=== PATIENT | male | born 1985 | race African-American/Black ===

== ENCOUNTER 2016-08-07 04:40 | Emergency (ER) | payer OTHER ==
[~2016-08-07] VITALS: Ht 198.1 cm; Wt 145.0 kg
[~2016-08-07 04:40] MED LIST: Z.0.NO CURRENT MEDS
[2016-08-07 04:44] VITALS: BP 118/62; PULSE 83; RESP 18; TEMP 98.2; O2SAT 96
--- NOTE | 2016-08-07 05:02 | PD ---
HPI Chief Complaint: Pain: Acute or Chronic Time Seen by Provider: 04:58 Travel History International Travel<30 days: No Contact w/Intl Traveler<30days: No Traveled to known affect area: No History of Present Illness HPI Patient comes in complaining of intermittent shooting pain throughout his bilateral feet over the past 3 days. Patient denies any trauma or known injury. Patient states he has been doing a little more work and walking around more for several few days. Pain radiates proximally. Patient denies doing anything for this. Patient states sometimes pain gets worse at night. PFS Past Medical History Medical History: Denies Significant Hx Diminished Hearing: No Social History Alcohol Use: No Tobacco Use: Yes (1 PK EVERY 3 DAYS) Substance Use: Yes (MARIJUANA) Allergies-Medications (Allergen,Severity, Reaction): Coded Allergies: No Known Allergies (Verified , 08/07/16) Reported Meds & Prescriptions Reported Meds & Active Scripts Active Reported No Current Meds (Miscellaneous Medication) Misc Review of Systems Except as stated in HPI: all other systems reviewed are Neg Physical Exam Narrative GENERAL: Well-developed, overly nourished, in no acute distress, and non-ill appearing. SKIN: Warm and dry. Dry flaky skin noted bilateral feet. There is no signs of tinea infection, abscess, cellulitis, or Cait's. There is no crepitus. HEAD: Atraumatic. Normocephalic. EYES: Pupils equal and round. EOMI. No scleral icterus. No injection or drainage. ENT: No nasal bleeding or discharge. Mucous membranes pink and moist. NECK: Trachea midline. Supple. No nuclear rigidity. CARDIOVASCULAR: Dorsal pulses 2+, tach, and equal bilaterally. Capillary refill less than 2 seconds. RESPIRATORY: No accessory muscle use. No respiratory distress. MUSCULOSKELETAL: No obvious deformities. No clubbing. No cyanosis. No edema. Full range of motion. Ankle: Neagative anterior draw and Villalobos test. Negative Henok's sign. No laxity noted with passive inversion and eversion of BL ankles. Negative squeeze test. Pulses equal BL distal to injury. Capillary refill less than 2 seconds distal to injury and equal BL. Sensation equal BL 1st web space. FROM of toes distal to injury and equal BL. NV intact distal to injury and equal BL. Dorsal pulses equal BL. NEUROLOGICAL: Awake and alert. No obvious cranial nerve deficits. Motor grossly within normal limits. Normal speech. PSYCHIATRIC: Appropriate mood and affect; insight and judgment normal. Data Data Last Documented VS Vital Signs Date Time Temp Pulse Resp B/P Pulse Ox O2 Delivery O2 Flow Rate FiO2 08/07/16 04:44 98.2 83 18 118/62 96 MDM Medical Decision Making Medical Screen Exam Complete: Yes Emergency Medical Condition: No Differential Diagnosis Plantar fasciitis, neuropathy, tinea, other Narrative Course There is no obvious signs of a tinea infection. Symptoms are not consistent with plantar fasciitis or neuropathy. There is no history of recent trauma or other injury. The patients neurological exam is normal with normal motor and sensory. I suspect the pain is mechanical in nature. Clinical suspicion, plan of care and management was discussed with the patient. The patient was instructed to follow up with their health care provider and/or gamb cutter. The patient was also instructed to return if the pain worsened or changed. The patient agreed with plan. Patient in no obvious distress upon re-evaluation. Any questions/concerns in reference to patient diagnosis/condition discussed and clarified prior to patient's discharge. Reinforced sheer importance of close follow up with patient 's primary physician or primary care clinic and/or gamb cutter. Instructed patient to return to ED immediately, if symptoms return/worsen. Pt showed understanding of above instructions. Further instructions and recommendations were detailed in discharge paperwork. Pt ambulated without difficulty out of ED at discharge. Diagnosis Primary Impression: Bilateral foot pain Referrals: Slava Swanson DPM Patient Instructions: General Instructions, How to Give Foot Care (GEN) Additional Instructions: Follow-up with your primary care physician and/or gamb cutter this week for reevaluation. Use [id number] Tylenol and/or ibuprofen as needed for pain. Follow instructions on the packaging. Return to the emergency department if symptoms get worse. Disposition: 01 DISCHARGE HOME Condition: Stable Allan Davies Aug 07, 2016 05:02
== END 2016-08-07 06:33 | disposition home or self-care (01) ==
LOC: NEPB 04:40
DX: M79.671 Pain in right foot (principal); M79.672 Pain in left foot; Z72.0 Tobacco use
CPT/HCPCS: 99282